=== PATIENT | male | born 1935 | race Caucasian/White ===

== ENCOUNTER 2016-10-25 11:01 | Emergency (ER) | payer MEDICARE, OTHER ==
--- NOTE | 2016-10-25 11:11 | ED Physician Documentation ---
PD HPI CHEST PAIN - Stated complaint Stated Complaint: RAPID HEART RATE - Chief complaint Chief Complaint: Cardiac - History obtained from History obtained from: Patient - History of Present Illness Timing - onset: Today, How many days ago (has noted some dyspnea and fatigue for the past 4-5 days.) Timing - onset during: Light activity Timing - details: Gradual onset, Still present Quality: Pressure. No: Tightness, Aching, Pain Location: Substernal Radiation: No: Neck, Back, Abdominal Improved by: Rest Worsened by: Exertion (walking around house). No: Movement, Palpation Associated symptoms: Feeling faint / dizzy, General Weakness, Palpitations. No : Shortness of air, Diaphoresis, Nausea, Cough Similar symptoms before: No diagnosis (he has noted episodic lightheadedness/ vertigo (some spinning component to it, but also lightheaded at time).) Recently seen: Not recently seen Review of Systems Constitutional: denies: Fever, Chills Nose: denies: Rhinorrhea / runny nose, Congestion Throat: denies: Sore throat Cardiac: reports: Palpitations. denies: Chest pain / pressure, Pedal edema, Calf pain Respiratory: denies: Dyspnea, Cough, Hemoptysis GI: denies: Abdominal Pain, Nausea, Vomiting, Diarrhea, Bloody / black stool : denies: Dysuria, Frequency, Hematuria Skin: denies: Rash, Lesions Musculoskeletal: denies: Neck pain, Back pain Neurologic: reports: Generalized weakness. denies: Focal weakness, Numbness Endocrine: denies: Weight loss Immunocompromised: denies: Immunocompromised PD PAST MEDICAL HISTORY - Past Medical History Cardiovascular: Hypertension, Other (no DC, CHF. Was told he had a murmur in the past but no testing. ) Respiratory: None Neuro: None Endocrine/Autoimmune: None - Present Medications Home Medications: Ambulatory Orders Medication Instructions Recorded Confirmed Amitriptyline [Elavil] 25 mg PO DAILY 10/25/16 10/25/16 Aspirin 81 10/25/16 Doxazosin Mesylate 4 mg PO DAILY 10/25/16 10/25/16 Hydrochlorothiazide 25 mg PO DAILY 10/25/16 10/25/16 Nifedipine [Nifedipine ER] 90 mg PO DAILY 10/25/16 10/25/16 Omeprazole [PriLOSEC] 20 mg PO DAILY 10/25/16 10/25/16 Rosuvastatin Calcium [Crestor] 20 mg PO DAILY 10/25/16 10/25/16 Spironolactone 25 mg PO DAILY 10/25/16 10/25/16 Valsartan [Diovan] 80 mg PO DAILY 10/25/16 10/25/16 diltiaZEM CD [Cardizem Cd] 180 mg PO DAILY #30 capsule 10/25/16 - Allergies Allergies/Adverse Reactions: Allergies Allergy/AdvReac Type Severity Reaction Status Date / Time Unable to Assess Allergy Verified 10/25/16 11:12 - Living Situation Living Situation: reports: With spouse/s.o. Living Arrangement: reports: At home - Social History Does the pt smoke?: No Does the pt have substance abuse?: No - Family History Family history: reports: Non contributory PD ED PE NORMAL - Vitals Vital signs reviewed: Yes - General General: Alert and oriented X 3, No acute distress, Well developed/nourished - HEENT HEENT: Pharynx benign - Neck Neck: Supple, no meningeal sign, No adenopathy, No JVD, No bruit - Cardiac Cardiac: No murmur, No rub. No: RRR (irregular and fast at 140s) - Respiratory Respiratory: Clear bilaterally - Abdomen Abdomen: Soft, Non tender - Male Male : Deferred - Rectal Rectal: Deferred - Back Back: No CVA TTP - Derm Derm: Normal color, Warm and dry - Extremities Extremities: No deformity, No tenderness to palpate, Normal ROM s pain, No edema - Neuro Neuro: Alert and oriented X 3, word processing specialist 2-12 intact, No motor deficit, No sensory deficit, Normal speech - Psych Psych: Normal mood, Normal affect Results - Vitals Vitals: Vital Signs - 24 hr 10/25/16 10/25/16 10/25/16 11:03 11:20 11:33 Heart Rate 139 H 110 H Respiratory 28 H 24 Rate Blood Pressure 130/90 H 110/72 Blood Pressure 130/90 H [Left] Blood Pressure 133/92 H [Right] O2 Saturation 98 98 10/25/16 10/25/16 10/25/16 11:48 12:04 12:30 Heart Rate 79 66 63 Respiratory 24 18 20 Rate Blood Pressure 96/70 132/67 H 135/77 H Blood Pressure [Left] Blood Pressure [Right] O2 Saturation 99 98 100 10/25/16 10/25/16 10/25/16 12:45 13:00 13:30 Heart Rate 61 64 55 L Respiratory 20 20 18 Rate Blood Pressure 128/62 127/80 125/89 H Blood Pressure [Left] Blood Pressure [Right] O2 Saturation 98 99 99 10/25/16 10/25/16 14:00 14:30 Heart Rate 62 64 Respiratory 20 20 Rate Blood Pressure 122/79 126/77 Blood Pressure [Left] Blood Pressure [Right] O2 Saturation 97 Oxygen O2 Source Room air - EKG (time done) 11:09 Rate: Rate (enter#) (154) Rhythm: Atrial fibrillation [place]: Normal QRS: Normal Ischemia: No: ST elevation c/w ischemia, ST depression Compare to prior EKG: Old EKG unavailable post cardioversion Rate: Rate (enter#) (60) Rhythm: NSR [place]: Normal Intervals: Normal [place] Ischemia: Normal ST segments. No: ST elevation c/w ischemia, ST depression Compare to prior EKG: Changed from prior EKG (for the better) - Labs Labs: Laboratory Tests 10/25/16 10/25/16 10/25/16 11:15 11:15 11:15 WBC 9.2 RBC 4.18 L Hgb 14.1 Hct 40.1 L MCV 96.1 H MCH 33.8 H MCHC 35.2 RDW 12.4 Plt Count 267 MPV 7.5 Neut # 5.9 Lymph # 2.1 [place] # 1.0 Eos # 0.2 Baso # 0.1 Absolute Nucleated RBC 0.00 Nucleated RBCs 0.0 Sodium 127 L Potassium 3.6 Chloride 95 L Carbon Dioxide 20 L Anion Gap 12.0 BUN 21 H Creatinine 1.4 H Estimated GFR (MDRD) 49 L Glucose 133 H Calcium 9.9 Magnesium 1.7 Total Bilirubin 0.8 AST 32 ALT 23 Alkaline Phosphatase 66 Troponin I < 0.04 B-Natriuretic Peptide Total Protein 7.9 Albumin 4.5 Globulin 3.4 Albumin/Globulin Ratio 1.3 Lipase 45 TSH 10/25/16 10/25/16 11:15 11:15 WBC RBC Hgb Hct MCV MCH MCHC RDW Plt Count MPV Neut # Lymph # [place] # Eos # Baso # Absolute Nucleated RBC Nucleated RBCs Sodium Potassium Chloride Carbon Dioxide Anion Gap BUN Creatinine Estimated GFR (MDRD) Glucose Calcium Magnesium Total Bilirubin AST ALT Alkaline Phosphatase Troponin I B-Natriuretic Peptide 261 H Total Protein Albumin Globulin Albumin/Globulin Ratio Lipase TSH 4.00 - Rads (name of study) chest Radiology: Prelim report reviewed (no acute process) ECHO Radiology: Prelim report reviewed (no acute process) PD MEDICAL DECISION MAKING - ED course Complexity details: reviewed results, re-evaluated patient (heart rate slowed readily with dose IV Diltiazem and then converted to NSR. He says he "feels the best he has in a week" which has me wonder if he has been having intermittent fib more often. He has had normal heart rate when taking BP daily though. He is feeling good now, no signs of heart failure and normal ECHO now. I feel he can be discharged. ), considered differential, d/w patient, d/w talent development consultant (MARIA LUISA Gregorio, will change to Diltiazem from Nifedipine and hold Sipronolactone for now. ) Departure - Departure Disposition: 01 Home, Self Care Clinical Impression: Paroxysmal atrial fibrillation with rapid ventricular response Condition: Stable Record reviewed to determine appropriate education?: Yes Instructions: ED Afib Follow-Up: Chinedu Gregorio MD [Primary Care Provider] - Prescriptions: diltiaZEM CD [Cardizem Cd] 180 mg PO DAILY #30 capsule Comments: Adequate hydration and low salt diet. Stop your Nifedipine and change to Diltiazem 180 mg daily. This will take the place of the Nifedipine for blood pressure and also help to control the heart rate from going too fast. Check BP and heart rate daily for the next several days and follow up with Dr. Gregorio about adjusting dose if needed. I would also hold your Spironolactone for the next several days until you follow up with Dr. Gregorio. Return if symptoms persistent again. Discharge Date/Time: 10/25/16 14:40
[2016-10-25] MEDS ORDERED: diltiaZEM INJ 5 MG/ML VIAL IVP STA (11:34)
[2016-10-25] MEDS ORDERED: SODIUM CHLORIDE 0.9% 500 ML IV ONE (11:35)
[2016-10-25] MEDS ORDERED: diltiaZEM INJ 5 MG/ML VIAL ONE (11:37)
[2016-10-25 11:41] LABS: BASOPHILS # (AUTO) 0.1 10^3/uL (0.0-0.1); BASOPHILS % (AUTO) 0.8 %; EOSINOPHILS # (AUTO) 0.2 10^3/uL (0.0-0.7); EOSINOPHILS % (AUTO) 1.9 %; HCT - HEMATOCRIT 40.1 % (42.0-52.0); HGB - HEMOGLOBIN 14.1 g/dL (14.0-18.0); LYMPHOCYTES # (AUTO) 2.1 10^3/uL (1.5-3.5); LYMPHOCYTES % (AUTO) 22.3 %; MEAN CORPUSCULAR HEMOGLOBIN 33.8 pg (27.0-31.0); MEAN CORPUSCULAR HGB CONC 35.2 g/dL (32.0-36.0); MEAN CORPUSCULAR VOLUME 96.1 fL (80.0-94.0); MEAN PLATELET VOLUME 7.5 fL (7.4-11.4); MONOCYTES % (AUTO) 11.1 %; NEUTROPHILS # (AUTO) 5.9 10^3/uL (1.5-6.6); NEUTROPHILS % (AUTO) 63.9 %; RED BLOOD COUNT 4.18 10^6/uL (4.70-6.10); RED CELL DISTRIBUTION WIDTH 12.4 % (12.0-15.0); UNCORRECTED WHITE BLOOD COUNT 9.2 x10^3/uL; WHITE BLOOD COUNT 9.2 x10^3/uL (4.8-10.8)
[2016-10-25 12:01] LABS: ALBUMIN/GLOBULIN RATIO 1.3 (1.0-2.2); BILIRUBIN,TOTAL 0.8 mg/dL (0.2-1.0); CALCIUM 9.9 mg/dL (8.5-10.3); CREATININE 1.4 mg/dL (0.6-1.2); MAGNESIUM 1.7 mg/dL (1.7-2.8); POTASSIUM 3.6 mmol/L (3.5-5.0); TOTAL PROTEIN 7.9 g/dL (6.7-8.2)
[2016-10-25] MEDS ORDERED: POTASSIUM CHLOR 10 MEQ/100 ML 100 ML IV ONE ×2 (12:19→12:22)
[2016-10-25] MEDS ORDERED: POTASSIUM BICARB 25 MEQ TABLET PO STA (12:19)
[2016-10-25] MEDS ORDERED: POTASSIUM BICARB 25 MEQ TABLET PO ONE (12:22)
--- NOTE | 2016-10-25 12:38 | XRAY Preliminary Report ---
Exam: XR Chest 1 View Impression: No evidence of an infiltrate. [id number]
--- NOTE | 2016-10-25 12:40 | XRAY Report ---
EXAM: CHEST RADIOGRAPHY EXAM DATE: 10/25/2016 12:00 PM. CLINICAL HISTORY: Dyspnea. COMPARISON: 03/13/2013. TECHNIQUE: 1 view. FINDINGS: There is hypoexpansion of the lungs. There is no focal infiltrate, pleural effusion or pneumothorax s een. The heart is not enlarged. Impression: No evidence of an infiltrate. [facility] Referring Provider Line: [phone] SITE ID: [id number]
[2016-10-25 14:56] VITALS: BP 126/77
== END 2016-10-25 14:40 | disposition home or self-care (01) ==
LOC: ED 11:01
DX: I48.0 Paroxysmal atrial fibrillation (principal); R94.31 Abnormal electrocardiogram [ECG] [EKG]; I10 Essential (primary) hypertension; Z79.82 Long term (current) use of aspirin
CPT/HCPCS: 36415; 71010; 80053; 83690; 83735; 83880; 84443; 84484; 85025; 93005; 93306; 96374; 96375; 99284; 99285; A9270

== ENCOUNTER 2017-10-31 17:16 | Emergency (ER) | payer MEDICARE, OTHER ==
[2017-10-31 18:11] LABS: BASOPHILS # (AUTO) 0.1 10^3/uL (0.0-0.1); BASOPHILS % (AUTO) 0.8 %; EOSINOPHILS # (AUTO) 0.2 10^3/uL (0.0-0.7); EOSINOPHILS % (AUTO) 2.1 %; HGB - HEMOGLOBIN 12.2 g/dL (14.0-18.0); LYMPHOCYTES # (AUTO) 1.8 10^3/uL (1.5-3.5); LYMPHOCYTES % (AUTO) 23.6 %; MEAN CORPUSCULAR HGB CONC 34.7 g/dL (32.0-36.0); MEAN CORPUSCULAR VOLUME 97.9 fL (80.0-94.0); MEAN PLATELET VOLUME 6.9 fL (7.4-11.4); MONOCYTES # (AUTO) 0.9 10^3/uL (0.0-1.0); MONOCYTES % (AUTO) 11.6 %; NEUTROPHILS # (AUTO) 4.8 10^3/uL (1.5-6.6); NEUTROPHILS % (AUTO) 61.9 %; PLT - PLATELET COUNT 275 10^3/uL (130-450); RED CELL DISTRIBUTION WIDTH 13.3 % (12.0-15.0); WHITE BLOOD COUNT 7.7 x10^3/uL (4.8-10.8)
[2017-10-31 18:17] LABS: PT - PROTHROMBIN TIME 80.7 secs (9.9-12.6)
[2017-10-31 18:23] LABS: ALBUMIN 4.1 g/dL (3.2-5.5); ALBUMIN/GLOBULIN RATIO 1.4 (1.0-2.2); BILIRUBIN,TOTAL 0.3 mg/dL (0.2-1.0); CALCIUM 9.3 mg/dL (8.5-10.3); CREATININE 1.5 mg/dL (0.6-1.2)
[2017-10-31 18:25] LABS: INR 7.7 (0.8-1.2)
--- NOTE | 2017-10-31 20:05 | ED Physician Documentation ---
History of Present Illness - Stated complaint Stated Complaint: PT/INRHIGH/SENT BY DR. CANNON - Chief complaint Chief Complaint: General - History obtained from History obtained from: Patient - History of Present Illness Timing: Today Pain level max: 0 Pain level now: 0 - Additonal information Additional information: had routine blood work outpatient, was contacted this evening by staff from his PMD's office and was told INR was over 6, instructed to go to ED. Patient feels well, denies any bleeding Review of Systems Cardiac: denies: Chest pain / pressure Respiratory: denies: Dyspnea, Hemoptysis GI: denies: Abdominal Pain, Hematemesis, Bloody / black stool : denies: Hematuria Neurologic: reports: Reviewed and negative Endocrine: denies: Easy bruising / bleeding PD PAST MEDICAL HISTORY - Past Medical History Cardiovascular: Hypertension, Other (no AR, CHF. Was told he had a murmur in the past but no testing. ) Respiratory: None Endocrine/Autoimmune: None GI: GERD, Colon polyps : Benign prostate hypertrophy Psych: Depression - Past Surgical History Past Surgical History: Yes General: Bowel surgery, Colonoscopy - Present Medications Home Medications: Ambulatory Orders Medication Instructions Recorded Confirmed Amitriptyline [Elavil] 25 mg PO DAILY 10/25/16 10/25/16 Aspirin 81 10/25/16 Doxazosin Mesylate 4 mg PO DAILY 10/25/16 10/25/16 Nifedipine [Nifedipine ER] 90 mg PO DAILY 10/25/16 10/25/16 Omeprazole [PriLOSEC] 20 mg PO DAILY 10/25/16 10/25/16 Rosuvastatin Calcium [Crestor] 20 mg PO DAILY 10/25/16 10/25/16 Spironolactone 25 mg PO DAILY 10/25/16 10/25/16 Valsartan [Diovan] 80 mg PO DAILY 10/25/16 10/25/16 diltiaZEM CD [Cardizem Cd] 180 mg PO DAILY #30 capsule 10/25/16 hydroCHLOROthiazide 25 mg PO DAILY 10/25/16 10/25/16 [Hydrochlorothiazide] - Allergies Allergies/Adverse Reactions: Allergies Allergy/AdvReac Type Severity Reaction Status Date / Time Unable to Assess Allergy Verified 10/25/16 11:12 - Social History Does the pt smoke?: No Smoking Status: Never smoker Does the pt drink ETOH?: Yes Does the pt have substance abuse?: No PD ED PE NORMAL - Vitals Vital signs reviewed: Yes - General General: Alert and oriented X 3, No acute distress, Well developed/nourished - Cardiac Cardiac: RRR, No murmur - Respiratory Respiratory: No respiratory distress, Clear bilaterally - Derm Derm: Normal color, Warm and dry - Neuro Neuro: Alert and oriented X 3 Results - Vitals Vitals: Vital Signs - 24 hr 10/31/17 10/31/17 17:47 20:27 Temperature 36 C L Heart Rate 62 68 Respiratory 20 16 Rate Blood Pressure 134/77 H 150/91 H O2 Saturation 96 99 Oxygen O2 Source Room air - Labs Labs: Laboratory Tests 10/31/17 10/31/17 10/31/17 18:08 18:08 18:08 WBC 7.7 RBC 3.60 L Hgb 12.2 L Hct 35.2 L MCV 97.9 H MCH 34.0 H MCHC 34.7 RDW 13.3 Plt Count 275 MPV 6.9 L Neut # (Auto) 4.8 Lymph # (Auto) 1.8 [place] # (Auto) 0.9 Eos # (Auto) 0.2 Baso # (Auto) 0.1 Absolute Nucleated RBC 0.00 Nucleated RBC % 0.0 PT 80.7 H INR 7.7 H* Sodium 131 L Potassium 4.0 Chloride 98 L Carbon Dioxide 21 Anion Gap 12.0 BUN 23 H Creatinine 1.5 H Estimated GFR (MDRD) 45 L Glucose 100 Calcium 9.3 Total Bilirubin 0.3 AST 28 ALT 22 Alkaline Phosphatase 57 Total Protein 7.0 Albumin 4.1 Globulin 2.9 Albumin/Globulin Ratio 1.4 Lipase 43 PD MEDICAL DECISION MAKING - ED course Complexity details: reviewed results, considered differential, d/w patient - Sepsis Event Vital Signs: Vital Signs - 24 hr 10/31/17 10/31/17 17:47 20:27 Temperature 36 C L Heart Rate 62 68 Respiratory 20 16 Rate Blood Pressure 134/77 H 150/91 H O2 Saturation 96 99 Oxygen O2 Source Room air Departure - Departure Disposition: 01 Home, Self Care Clinical Impression: Supratherapeutic INR Condition: Good Instructions: Coumadin Follow-Up: Chinedu Cannon MD [Primary Care Provider] - Comments: There are different approaches to this situation: a high INR without evidence of current/active bleeding. You indicated that you were told to hold your coumadin (warfarin) for three days. I recommend that you contact your primary care doctor's office in the morning and tell them that you were given vitamin K 2.5 mg orally; this information might change their recommendation. You should not take tomorrow's dose (11/01/17) of warfarin. Discharge Date/Time: 10/31/17 20:29
[2017-10-31] MEDS ORDERED: PHYTONADIONE 10 MG/ML AMP PO STA (20:14)
[2017-10-31] MEDS ORDERED: CHERRY SYRUP 10 ML UDC PO ONE (20:14)
[2017-10-31 20:29] VITALS: BP 150/91
== END 2017-10-31 20:29 | disposition home or self-care (01) ==
LOC: ED 17:16
DX: R79.1 Abnormal coagulation profile (principal); I10 Essential (primary) hypertension; Z79.82 Long term (current) use of aspirin
CPT/HCPCS: 36415; 80053; 83690; 85025; 85610; 99283; A9270

== ENCOUNTER 2018-07-11 11:28 | Outpatient (CLI) | payer MEDICARE, OTHER ==
--- NOTE | 2018-07-11 15:48 | Ultrasound Report ---
Reason: NOCTURIA, DISORDER OF URINARY SYSTEM, UNSPECIFIED Procedure Date: 07/11/2018 Accession Number: [id number] / [id number] Procedure: US - Bladder CPT Code: FULL RESULT: EXAM: PELVIS ULTRASOUND, LIMITED EXAM DATE: 07/11/2018 12:12 PM. CLINICAL HISTORY: Nocturia, disorder of urinary system, unspecified. COMPARISON: None. TECHNIQUE: Real-time scanning was performed with static images obtained. FINDINGS: Bladder: The initial bladder volume was 301 mL. A 154 mL postvoid residual bladder volume is noted. Bilateral ureteral jets documented. Normal wall thickness. No masses evident. Other: Prostatic enlargement at 4 x 3.5 x 4.6 cm. IMPRESSION: Moderate postvoiding residual of 154 cc. [facility]
== END 2018-07-11 11:29 | disposition home or self-care (01) ==
LOC: DI 11:28
PROVIDERS: ATTEND Internal Medicine
DX: N39.9 Disorder of urinary system, unspecified (principal); R35.1 Nocturia
CPT/HCPCS: 76857